=== PATIENT | male | born 1990 | race African-American/Black ===

== ENCOUNTER 2017-07-08 09:26 | Emergency (ER) | payer SELFPAY | END 2017-07-08 10:23 | disposition home or self-care (01) | LOC: ER 09:26 | DX: T16.2XXA Foreign body in left ear, initial encounter (principal); X58.XXXA Exposure to other specified factors, initial encounter; Y93.89 Activity, other specified; Y92.89 Other specified places as the place of occurrence of the external cause; Y99.8 Other external cause status | CPT/HCPCS: 69200; 99284 ==